=== PATIENT | female | born 1985 | race Caucasian/White ===

== ENCOUNTER 2020-09-08 06:54 | Outpatient (NON) | payer OTHER, SELFPAY ==
[2020-09-08 19:23] LABS: SARS-CoV-2 RNA PCR Negative
== END 2020-09-08 06:55 ==
LOC: ANHCOVIDDT 07:02
PROVIDERS: PCP Family Medicine; Visit Provider Family Medicine
DX: R68.89 Other general symptoms and signs (principal); Z20.822 Contact with and (suspected) exposure to COVID-19
CPT/HCPCS: C9803; U0003

== ENCOUNTER 2024-06-19 15:41 | Outpatient (CLI) | payer OTHER, SELFPAY ==
--- NOTE | ~2024-06-19 | XR_ITS ---
XR knee RT 3V Ordering provider: Uriah Stockton, [employer] History: . R KNEE PAIN . Comparison: None. FINDINGS: BONES: No acute fracture or dislocation. JOINT SPACES: Slight narrowing of the lateral compartment. SOFT TISSUES: Normal. IMPRESSION: No acute osseous abnormality right knee. Slight narrowing of the lateral compartment. Reviewed, dictated and finalized at location A.
== END 2024-06-19 15:42 | disposition home or self-care (01) ==
LOC: ANHIMG 15:45
PROVIDERS: PCP Family Medicine; Visit Provider Registered Nurse
DX: M25.561 Pain in right knee (principal)
CPT/HCPCS: 73562